=== PATIENT | female | born 1940 | race Caucasian/White ===

== ENCOUNTER → 2017-11-18 | Outpatient (CLI) | payer MEDICARE, OTHER ==
[~2017-11-18] MED LIST: BIOTIN PO; CALCIUM + D3 E1 EACH PO; CINNAMON PO; COQ 10 PO; FISH OIL PO; FLAX SEED PO; LEVOXYL88 MCG PO; LOSARTAN POTASS50 MG PO; MAGNESIUM PO; PREMARIN0.625 MG PO; RED YEAST RICE PO; VITAMIN B12 PO; VITAMIN E PO
== END ==
LOC: M.RAD 10:15
DX: Z12.31 Encounter for screening mammogram for malignant neoplasm of breast (principal)

== ENCOUNTER → 2017-11-25 | Outpatient (CLI) | payer MEDICARE, OTHER | LOC: M.ULTRA 11:20 | DX: N63.11 Unspecified lump in the right breast, upper outer quadrant (principal); N60.02 Solitary cyst of left breast ==

== ENCOUNTER → 2018-01-10 | Outpatient (CLI) | payer MEDICARE, OTHER ==
--- NOTE | 2018-01-14 15:07 | PATH ---
[address] [address] PATHOLOGY RPT PROCEDURE Name: STEFANIE ANDERSON Room: [facility] Clemencia#: [id number] Admission: 01/10/18 Date of : 42 Discharge: Report #: [id number] Path Case #: [id number] [facility] Accession Number: [id number] . 01 Material submitted: . LEFT BREAST BIOPSY . 01 Clinical history: . 0.39 x 0.69 x 0.77 cm mass, 6:00, 4 cm from nipple . 02 Diagnosis: Left breast, 6:00, 4 cm from nipple, image-guided core biopsies: - Benign breast tissue with usual ductal epithelial hyperplasia, mild chronic inflammation, cystic apocrine change and luminal calcification, negative for atypia. See comment. . (BREONNA:nicky; 01/12/18) [facility]/01/12/2018 . 02 Comment: Reviewed with Dr. Dennis Brink who agrees with the diagnosis. . (BREONNA:mml; 01/12/18) . 02 Electronically signed: . Rolf Zaragoza MD, Pathologist NPI- [id number] . 01 Gross description: . Received in formalin labeled "Stefanie Anderson, left breast 6:00, 4 cm FN," are 2 needle cores of yellow-brown fibrofatty tissue measuring 2.2 x 0.9 x 0.5 cm in aggregate dimensions. The tissue is submitted in its entirety in cassettes A1 and A2. The cold ischemic time is 2 minutes. The total formalin fixation time is approximately 13 hours. (TSD; 01/10/2018) TOB/TOB . 02 Pathologist provided ICD-10: N62, N61.0 . 02 CPT . 268640 Specimen Comment: A courtesy copy of this report has been sent to Specimen Comment: [phone], , , . Specimen Comment: Report sent to , DR MORILLO,DR GONSALES / DR LYNCH Specimen Comment: A duplicate report has been generated due to demographic updates. Performed at: [address] [place] [address] PATHOLOGY RPT PROCEDURE Name: STEFANIE ANDERSON Room: [facility]#: [id number] Admission: 01/10/18 Date of : 42 Discharge: Report #: [id number] Path Case #: [id number] [facility] [place] [address], [place], [place] [id number] MD Bob Ortiz MD Phone: [phone] Performed at: 02 [facility] [address], [place], [place] [id number] MD Rolf Zaragoza MD Phone: [phone]
== END | disposition home or self-care (01) ==
LOC: M.ULTRA 07:46
DX: N62 Hypertrophy of breast (principal); N61.0 Mastitis without abscess; R92.1 Mammographic calcification found on diagnostic imaging of breast; Z79.899 Other long term (current) drug therapy

== ENCOUNTER → 2018-07-15 | Outpatient (CLI) | payer MEDICARE, OTHER | LOC: M.ULTRA 07-14 10:00 → M.RAD 07-14 10:00 | DX: R92.2 Inconclusive mammogram (principal); R92.8 Other abnormal and inconclusive findings on diagnostic imaging of breast ==

== ENCOUNTER → 2018-11-21 | Outpatient (CLI) | payer MEDICARE, OTHER | LOC: M.RAD 10:53 | DX: Z12.31 Encounter for screening mammogram for malignant neoplasm of breast (principal) ==

== ENCOUNTER → 2020-02-05 | Outpatient (CLI) | payer MEDICARE, OTHER | LOC: M.RAD 10:30 | PROVIDERS: ATTEND Emergency Medicine | DX: Z12.31 Encounter for screening mammogram for malignant neoplasm of breast (principal) ==

== ENCOUNTER → 2021-02-13 | Outpatient (CLI) | payer MEDICARE, OTHER | LOC: M.RAD 09:45 | PROVIDERS: ATTEND Emergency Medicine | DX: Z12.31 Encounter for screening mammogram for malignant neoplasm of breast (principal) ==